=== PATIENT | female | born 1955 | race Caucasian/White ===

== ENCOUNTER → 2018-06-03 | Outpatient (CLI) | payer MEDICARE, MEDICAID ==
[~2018-06-03] MED LIST: ALBU18HF INH; ASCO-96 PO; BUSP15TA PO; CETI10TA24 PO; CHOL5000 PO; CYANOCOBALAMIN PO; CYCL-259 PO; FLUT200B INH; LEVOMEFOLATE PO; NAPR-685 PO; PANT40TA5 PO; PYRIDOXINE PO; TRAM50TA2 PO; VENL75CA6 PO
[2018-06-03 16:06] LABS: BASOPHILS # (AUTO) 0.05 x10^3/uL (0-0.1); BASOPHILS % (AUTO) 1 % (0-1); EOSINOPHILS % (AUTO) 1 % (1-7); HCT (SEDRATE) 43.1 % (34.6-47.8); LYMPHOCYTES # (AUTO) 2.43 x10^3/uL (1-3.4); LYMPHOCYTES % (AUTO) 25 % (22-44); MD NO; MEAN CORPUSCULAR HEMOGLOBIN 32.7 pg (27.0-34.8); MEAN CORPUSCULAR HGB CONC 34.2 g/dL (32.4-35.8); MEAN CORPUSCULAR VOLUME 95.8 fL (80-100); MEAN PLATELET VOLUME 7.3 fL (7.4-10.4); MONOCYTES # (AUTO) 0.62 x10^3/uL (0.2-0.8); MONOCYTES % (AUTO) 6 % (2-9); NEUTROPHILS # (AUTO) 6.57 x10^3/uL (1.8-6.8); NEUTROPHILS % (AUTO) 67 % (42-75); PLATELET COUNT 417 x10^3/uL (130-400); RED BLOOD COUNT 4.43 x10^6/uL (3.82-5.3); RED CELL DISTRIBUTION WIDTH 14.5 % (9.6-15.2)
[2018-06-03 16:06] LABS: MICROSCOPIC NOT IND
[2018-06-03 16:10] LABS: CULTURE INDICATED? NO
[2018-06-03 16:15] LABS: ANION GAP 8 mmol/L (5-15); CALCIUM 9.8 mg/dL (8.5-10.1); CHLORIDE 108 mmol/L (98-107); CREATININE 1.21 mg/dL (0.55-1.02)
[2018-06-03 16:18] LABS: INTERNATIONAL NORMALIZED RATIO 0.95 (0.93-1.1); PROTHROMBIN TIME 9.8 Seconds (9.6-11.5)
== END | disposition home or self-care (01) ==
LOC: STAR 14:20
PROVIDERS: ATTEND Orthopaedic Surgery Orthopaedic Surgery of the Spine
DX: Z01.818 Encounter for other preprocedural examination (principal); J43.9 Emphysema, unspecified; M67.431 Ganglion, right wrist; S22.31XA Fracture of one rib, right side, initial encounter for closed fracture; X58.XXXA Exposure to other specified factors, initial encounter; Y93.89 Activity, other specified; Y92.89 Other specified places as the place of occurrence of the external cause; Y99.8 Other external cause status
CPT/HCPCS: 36415; 71046; 80048; 81003; 85025; 85610; 85651; 85730; 93005

== ENCOUNTER 2018-06-13 07:13 | Inpatient (IN) | payer MEDICARE, MEDICAID ==
[~2018-06-13] VITALS: Ht 167.6 cm; Wt 76.8 kg
[~2018-06-13 07:13] MED LIST changes: +BACITRACIN 50,000 UNIT ONE; +BUPIVACAINE/PF-EPI 0.5% 1:200K ONE; +THROMBIN 20,000 UNIT VIAL TP ONE; +TRANEXAMIC ACID 100 MG/ML, 10ML ONE
[2018-06-13] MEDS ORDERED: LACTATED RINGERS 1,000 ML IV SCH (07:33)
[2018-06-13 07:45] VITALS: BP 138/93
[2018-06-13] MEDS ORDERED: GABAPENTIN 300 MG CAPSULE PO ONE (08:00)
[2018-06-13] MEDS ORDERED: ACETAMINOPHEN 500 MG TABLET PO ONE (08:00)
[2018-06-13] MEDS ORDERED: MIDAZOLAM 1 MG/ML, 2ML ONE (08:49)
[2018-06-13] MEDS ORDERED: PROPOFOL 50 ML ONE (08:49)
[2018-06-13] MEDS ORDERED: FENTANYL PF 100 MCG/2ML ONE ×3 (08:49→14:32)
[2018-06-13] MEDS ORDERED: VANCOMYCIN 1,000 MG ONE (10:10)
[2018-06-13] MEDS ORDERED: TRANEXAMIC ACID 100 MG/ML, 10ML ONE (10:10)
[2018-06-13] MEDS ORDERED: METOPROLOL 1 MG/ML, 5ML IV PRN (10:30)
[2018-06-13] MEDS ORDERED: ALBUTEROL SULFATE 2.5 MG/3 ML NPPB PRN ×3 (10:30→21:30)
[2018-06-13] MEDS ORDERED: MEPERIDINE/PF 25MG/0.5ML IVPush PRN (10:30)
[2018-06-13] MEDS ORDERED: LABETALOL 5MG/ML, 20ML IV PRN ×2 (10:30→19:30)
[2018-06-13] MEDS ORDERED: OXYcodone 5 MG/5 ML ORAL.SOL UDC PO PRN (10:30)
[2018-06-13] MEDS ORDERED: FENTANYL PF 100 MCG/2ML IV PRN (10:30)
[2018-06-13] MEDS ORDERED: LORazepam 2 MG/ML, 1ML IVPush PRN (10:30)
[2018-06-13] MEDS ORDERED: hydrALAzine 20 MG/ML, 1ML IV PRN (10:30)
[2018-06-13] MEDS ORDERED: DIPHENHYDRAMINE 50 MG/ML, 1ML IVPush PRN ×2 (10:30→19:30)
[2018-06-13] MEDS ORDERED: MORPHINE SULFATE 4 MG/ML, 1ML IVPush PRN (10:30)
[2018-06-13] MEDS ORDERED: DIAZEPAM 5 MG/ML, 2ML IVPush PRN (10:30)
[2018-06-13] MEDS ORDERED: PROCHLORPERAZINE 5 MG/ML, 2ML IV PRN (10:30)
[2018-06-13] MEDS ORDERED: MIDAZOLAM 1 MG/ML, 2ML IV PRN (10:30)
[2018-06-13] MEDS ORDERED: BUPIVACAINE/PF 0.5% ONE (10:58)
[2018-06-13] MEDS ORDERED: CEFAZOLIN 1,000 MG ONE ×2 (12:03→12:04)
[2018-06-13] MEDS ORDERED: ROCURONIUM 10MG/ML,5ML ONE (12:03)
[2018-06-13] MEDS ORDERED: PROPOFOL 10 MG/ML, 20ML ONE ×2 (12:03→13:39)
[2018-06-13] MEDS ORDERED: SUCCINYLCHOLINE 20 MG/ML, 10ML ONE (12:04)
[2018-06-13] MEDS ORDERED: DEXAMETHASONE 4 MG/ML, 1ML ONE ×2 (12:04)
[2018-06-13] MEDS ORDERED: PHENYLEPHRINE 10 MG/ML ONE (12:04)
[2018-06-13] MEDS: HYDROmorphone 1 MG/ML, 1ML IV PRN ×4 (15:22→16:04)
[2018-06-13] MEDS ORDERED: HYDROmorphone 2 MG/ML, 1ML ONE (15:32)
[2018-06-13] MEDS ORDERED: OXYcodone 5 MG/5 ML ORAL.SOL UDC ONE (15:32)
[2018-06-13] MEDS ORDERED: DIAZEPAM 5 MG TABLET ONE (15:48)
[2018-06-13] MEDS ORDERED: DIAZEPAM 5 MG TABLET PO ONE (16:00)
[2018-06-13] MEDS ORDERED: LACTATED RINGERS 500 ML IVBOLUS PRN (17:00)
[2018-06-13] MEDS: EPHEDRINE 50 MG/ML, 1ML IVPush PRN ×2 (17:01→17:11)
[2018-06-13] MEDS ORDERED: EPHEDRINE 50 MG/ML, 1ML ONE (17:03)
[2018-06-13] MEDS ORDERED: OXYcodone IR 5MG TABLET PO PRN (19:30)
[2018-06-13] MEDS ORDERED: KETOROLAC 30 MG/1 ML IV ONE (19:30)
[2018-06-13] MEDS ORDERED: DIAZEPAM 5 MG/ML, 2ML IV PRN (19:30)
[2018-06-13] MEDS ORDERED: ONDANSETRON 2MG/ML, 2ML IV PRN (19:30)
[2018-06-13] MEDS ORDERED: morphine SULFATE 10 MG/ML, 1ML IV PRN (19:30)
[2018-06-13] MEDS ORDERED: KETOROLAC 30 MG/1 ML IVPush PRN (19:30)
[2018-06-13] MEDS ORDERED: METHOCARBAMOL 1,000 MG in DEXTROSE 5% 100 ML IV ONE (19:30)
[2018-06-13] MEDS ORDERED: MAGNESIUM HYDROXIDE 8%, 30ML UDC PO PRN (19:30)
[2018-06-13] MEDS ORDERED: DIAZEPAM 5 MG TABLET PO PRN (19:30)
[2018-06-13] MEDS ORDERED: PROMETHAZINE 25 MG/ML, 1ML IM PRN (19:30)
[2018-06-13] MEDS ORDERED: LORazepam 1MG TABLET PO PRN (19:30)
[2018-06-13] MEDS ORDERED: KETOROLAC 30 MG/1 ML IM SCH (19:30)
[2018-06-13] MEDS ORDERED: SODIUM CHLORIDE 0.9% 1,000 ML IV PRN (19:30)
[2018-06-13] MEDS ORDERED: DIPHENHYDRAMINE 50 MG CAPSULE PO PRN (19:30)
[2018-06-13] MEDS ORDERED: BISACODYL 10 MG SUPP PR PRN (19:30)
[2018-06-13] MEDS ORDERED: DIPHENHYDRAMINE 50 MG/ML, 1ML IM PRN (19:30)
[2018-06-13] MEDS: CEFAZOLIN PMX 1GM/50ML 50 ML IVPB SCH (19:49)
[2018-06-13 20:27] VITALS: BP 87/56
[2018-06-13] MEDS ORDERED: NAPROXEN 500 MG TABLET PO PRN (21:30)
[2018-06-13] MEDS ORDERED: ACETAMINOPHEN 500 MG TABLET PO PRN (21:30)
[2018-06-13] MEDS: BUSPIRONE 5 MG TABLET PO SCH (23:27)
[2018-06-13] MEDS: ZOLPIDEM 5MG TABLET PO PRN (23:27)
[2018-06-13 23:29] VITALS: BP 90/58
[2018-06-14] MEDS: D5%-0.9% NACL+KCL 20MEQ 1,000 ML IV SCH ×3 (01:48→23:00)
[2018-06-14 03:50] VITALS: BP 108/72
[2018-06-14] MEDS: CEFAZOLIN PMX 1GM/50ML 50 ML IVPB SCH (03:51)
[2018-06-14 04:32] LABS: BASOPHILS # (AUTO) 0.01 x10^3/uL (0-0.1); BASOPHILS % (AUTO) 0 % (0-1); EOSINOPHILS # (AUTO) 0.01 x10^3/uL (0-0.4); EOSINOPHILS % (AUTO) 0 % (1-7); LYMPHOCYTES # (AUTO) 1.34 x10^3/uL (1-3.4); LYMPHOCYTES % (AUTO) 10 % (22-44); MD NO; MEAN CORPUSCULAR HEMOGLOBIN 33.1 pg (27.0-34.8); MEAN CORPUSCULAR HGB CONC 33.8 g/dL (32.4-35.8); MEAN CORPUSCULAR VOLUME 98.2 fL (80-100); MEAN PLATELET VOLUME 7.3 fL (7.4-10.4); MONOCYTES % (AUTO) 8 % (2-9); NEUTROPHILS # (AUTO) 10.63 x10^3/uL (1.8-6.8); NEUTROPHILS % (AUTO) 81 % (42-75); PLATELET COUNT 270 x10^3/uL (130-400); RED BLOOD COUNT 2.77 x10^6/uL (3.82-5.3); RED CELL DISTRIBUTION WIDTH 14.4 % (9.6-15.2)
[2018-06-14] MEDS: OXYcodone IR 5MG TABLET PO PRN ×6 (04:58→23:35)
[2018-06-14] MEDS: PANTOPROZOLE 40MG TABLET PO SCH (07:47)
[2018-06-14 08:24] VITALS: BP 102/64
[2018-06-14] MEDS: CHOLECALCIFEROL 5,000u TAB PO SCH (08:59)
[2018-06-14] MEDS: SENNA/DOCUSATE TABLET PO SCH (08:59)
[2018-06-14] MEDS: CETIRIZINE 10 MG TABLET PO SCH (08:59)
[2018-06-14] MEDS: DEXAMETHASONE 4 MG/ML, 1ML IVPush PRN (08:59)
[2018-06-14] MEDS: ASCORBIC ACID 500 MG TABLET PO SCH ×2 (08:59→19:48)
[2018-06-14] MEDS: VENLAFAXINE 75 MG CAP ER PO SCH (08:59)
[2018-06-14] MEDS: FLUTICASONE FUROATE 200MCG/INH INH SCH (09:00)
[2018-06-14] MEDS: BUSPIRONE 5 MG TABLET PO SCH ×2 (09:00→19:48)
[2018-06-14] MEDS: [UNRECOGNIZED DRUG - OTHER] HOMEMEDPO SCH (09:00)
[2018-06-14 13:48] VITALS: BP 103/70
[2018-06-14 18:53] VITALS: BP 111/73
[2018-06-14] MEDS ORDERED: BUSPIRONE 10 MG TABLET ONE (19:42)
[2018-06-14] MEDS: ZOLPIDEM 5MG TABLET PO PRN (19:50)
[2018-06-15 01:41] VITALS: BP 116/7
[2018-06-15] MEDS: OXYcodone IR 5MG TABLET PO PRN ×5 (03:11→15:24)
[2018-06-15 05:34] LABS: MEAN CORPUSCULAR HEMOGLOBIN 33.3 pg (27.0-34.8); MEAN CORPUSCULAR HGB CONC 34.2 g/dL (32.4-35.8); MEAN CORPUSCULAR VOLUME 97.2 fL (80-100); MEAN PLATELET VOLUME 7.6 fL (7.4-10.4); PLATELET COUNT 261 x10^3/uL (130-400); RED BLOOD COUNT 3.05 x10^6/uL (3.82-5.3); RED CELL DISTRIBUTION WIDTH 14.5 % (9.6-15.2)
[2018-06-15 06:52] LABS: MD YES
[2018-06-15 06:54] LABS: BAND#(MANUAL) 1.72 x10^3/uL; BANDS%(MANUAL) 11 % (0-7); LYMPH#(MANUAL) 0.94 x10^3/uL (1-3.4); LYMPHS% (MANUAL) 6 % (22-44); MONOS#(MANUAL) 0.47 x10^3/uL (0.3-2.7); MONOS% (MANUAL) 3 % (2-9); SEG#(MANUAL) 12.48 x10^3/uL (1.8-6.8); SEGS% (MANUAL) 80 % (42-75)
[2018-06-15 06:56] LABS: ANISOCYTOSIS 1+
[2018-06-15 06:57] LABS: <PLATELET ESTIMATE> ADEQUATE; <PLT MORPHOLOGY> NORMAL PLT MORPH; SPHEROCYTES 1+
[2018-06-15] MEDS: PANTOPROZOLE 40MG TABLET PO SCH (08:02)
[2018-06-15] MEDS: D5%-0.9% NACL+KCL 20MEQ 1,000 ML IV SCH (08:25)
[2018-06-15] MEDS: [UNRECOGNIZED DRUG - OTHER] HOMEMEDPO SCH (09:00)
[2018-06-15] MEDS: FLUTICASONE FUROATE 200MCG/INH INH SCH (09:00)
[2018-06-15] MEDS: ASCORBIC ACID 500 MG TABLET PO SCH (09:14)
[2018-06-15] MEDS: CHOLECALCIFEROL 5,000u TAB PO SCH (09:14)
[2018-06-15] MEDS: SENNA/DOCUSATE TABLET PO SCH (09:14)
[2018-06-15] MEDS: VENLAFAXINE 75 MG CAP ER PO SCH (09:14)
[2018-06-15] MEDS: CETIRIZINE 10 MG TABLET PO SCH (09:14)
[2018-06-15] MEDS: DEXAMETHASONE 4 MG/ML, 1ML IVPush PRN ×2 (09:15→15:24)
[2018-06-15] MEDS: BUSPIRONE 5 MG TABLET PO SCH (09:15)
[2018-06-15 09:50] VITALS: BP 101/70
[2018-06-15 14:56] VITALS: BP 102/69
== END 2018-06-15 15:55 | disposition home or self-care (01) | DRG 460 ==
LOC: ORIP 07:13 → 4NOR 18:21
PROVIDERS: ADMIT Orthopaedic Surgery Orthopaedic Surgery of the Spine; ATTEND Orthopaedic Surgery Orthopaedic Surgery of the Spine
PROC: 4A11X4G Monitoring of Peripheral Nervous Electrical Activity, Intraoperative, External Approach (ICD-10-PCS; 2018-06-13)
PROC: 0QU00JZ Supplement Lumbar Vertebra with Synthetic Substitute, Open Approach (ICD-10-PCS; 2018-06-13)
PROC: 0RBP0ZZ Excision of Left Wrist Joint, Open Approach (ICD-10-PCS; 2018-06-13)
PROC: 01NB0ZZ Release Lumbar Nerve, Open Approach (ICD-10-PCS; 2018-06-13)
PROC: 0SG0071 Fusion of Lumbar Vertebral Joint with Autologous Tissue Substitute, Posterior Approach, Posterior Column, Open Approach (ICD-10-PCS; principal; 2018-06-13 09:30)
PROC: 07DR3ZZ Extraction of Iliac Bone Marrow, Percutaneous Approach (ICD-10-PCS; 2018-06-13 09:30)
DX: M48.061 Spinal stenosis, lumbar region without neurogenic claudication (principal); G97.41 Accidental puncture or laceration of dura during a procedure; R65.10 Systemic inflammatory response syndrome (SIRS) of non-infectious origin without acute organ dysfunction; M43.16 Spondylolisthesis, lumbar region; M54.16 Radiculopathy, lumbar region; M67.432 Ganglion, left wrist; Y83.4 Other reconstructive surgery as the cause of abnormal reaction of the patient, or of later complication, without mention of misadventure at the time of the procedure
CPT/HCPCS: 36415; 72100; 76001; 85025; 88304; C1713; G0378; J0690; J1100; J1170; J1885; J2250; J2704; J3010; J3370; J3490; J7120; C1760; C1762; C1763; C9352; C9362; J0330; J2370; J3480; J7030